=== PATIENT | male | born 1980 | race Caucasian/White ===

== ENCOUNTER 2016-12-03 16:17 | Emergency (ER) | payer OTHER ==
[~2016-12-03] VITALS: Ht 180.3 cm; Wt 84.4 kg
[2016-12-03 16:21] VITALS: TEMP 36.8; Ht 180.3 cm; Wt 84.4 kg
--- NOTE | 2016-12-03 18:01 | DIAGNOSTIC IMAGING REPORT ---
SACRUM AND COCCYX 4 VIEWS CLINICAL HISTORY: Fall with sacrococcygeal pain. FINDINGS: 4 views of the sacrum and coccyx are obtained. No prior studies are available for comparison at the time of dictation. The skeletal structures are well mineralized. There is no radiographic evidence of sacral or coccygeal fracture. The overlying soft tissues are normal as visualized. The hip joints appear maintained. The sacroiliac joints are unremarkable. IMPRESSION: There is no radiographic evidence of sacral or coccygeal fracture. Electronically signed by: Elier Echeverria M.D. 12/03/2016 5:59 PM Dictated Date/Time: 12/03/2016 5:58 PM
[2016-12-03] MEDS ORDERED: HYDR-5688 PO (18:09)
[2016-12-03] MEDS ORDERED: CLIN300C10 PO (18:09)
[2016-12-03 18:44] VITALS: BP 127/85; PULSE 78; O2SAT 99
--- NOTE | 2016-12-04 00:41 | EMERGENCY ROOM VISIT NOTE ---
ED Visit Note First contact with patient: 16:25 Chief Complaint: Broken tooth and tailbone pain. History of Present Illness: Mr. Latif is a 35-year-old white male who ambulates into the ED complaining of right maxillary dental pain and coccyx pain. Historically patient reports he had extensive dental disease approximately 4 months ago after not seeing a dentist for multiple years. He reports multiple caries were repaired. He reports since that time he has been feeling well. Additionally he reports he has a history of any previous coccyx fracture and pilonidal abscess from many years ago. Patient reports he was eating yesterday and when he finished he felt there was like something was different with his second maxillary bicuspid on the right. Then just about an hour ago he was eating pizza and had an acute onset of pain over the bicuspid. Currently he describes the pain as sharp and throbbing. He rates the discomfort 7/10. The pain is nonradiating. The pain worsens with palpation of the tooth and exposure to the air. He has not identified any alleviating factors related to the pain. He has not taken any medications for pain prior to arrival at the hospital. He denies any associated fevers, chills , sweats, facial swelling, sore throat, voice changes, other maxillary and mandibular pain. Additionally he reports 3 days ago he was drinking heavily after work and does not remember the evening. 2 days ago when he woke up he was having coccyx pain. Since that time the pain has been constant. He describes this as a stabbing throbbing pain. He rates his discomfort 8/10. His pain is nonradiating. His pain worsens with palpation and sitting on his coccyx. He has not identified any alleviating factors related to the pain. He has not taken a medication for pain prior to arrival at the hospital. He denies any associated fevers, chills, sweats, skin eruptions, skin color changes, abdominal pain, nausea, vomiting, bloody stools, bloody urine and urinary symptoms. Review of Systems: As noted above in history of present illness. 8 body systems were reviewed and found to be negative as noted above. Past Medical History: As previously noted. Current Medications: Patient denies. Allergies to Medications: Patient denies. Social History: Patient is currently employed; he feels safe in his home environment; he admits to tobacco and alcohol use. Physical Examination: Vital Signs: Date Time Temp Pulse Resp B/P Pulse Ox O2 Delivery O2 Flow Rate FiO2 12/03/16 18:44 78 18 127/85 99 12/03/16 16:21 36.8 79 18 129/74 98 Room Air GENERAL: 35 year-old white male in mild to moderate distress due to pain, nontoxic-appearing, afebrile and hemodynamically stable. . NEUROLOGICAL: Awake, alert and oriented to person, place and time. Answering questions appropriately and following commands. Normal gait. Good hand eye coordination. No focal motor or sensory deficits. SKIN: Warm, dry and pink. No soft tissue eruptions or trauma noted. HEENT: Atraumatic and normocephalic. Sclera white and conjunctiva pink. No malocclusion. Tooth #4 is vertically fractured with exposure of the canal and there is reminiscent filling; there is no active bleeding. No erythema or tenderness over the surrounding gingiva. No signs of abscess. Airway is patent. Speech normal. No submandibular or cervical lymphadenopathy. BACK: No tenderness over thoracic or lumbar bony spine. Moderate tenderness over the coccyx without bony deformity, bony crepitus, swelling or ecchymosis. No local erythema or edema consistent with abscess. ABDOMEN: Flat, soft and nontender. Positive bowel sounds in all quadrants. No guarding, rigidity or organomegaly. EXTREMITIES: Moves all extremities well on command and with purpose. All distal neurovascular statuses are intact and equal bilaterally. ED Course: Patient is assessed as noted above. Sacrum/Coccyx X-Rays: Were read by myself and shows no acute fractures or subluxations. Patient was offered pain medications and refused. Patient was educated about tonight's findings and instructed on his treatment plan; he verbalizes understanding and agreement with this plan. Clinical Impression: Maxillary tooth fracture. Coccyx pain. Disposition: Patient discharged home in stable condition accompanied by male friend; prior to departure he was reassessed and subjectively reported he was feeling better and rated his discomfort 4/10. Plan: Comfort measures were discussed with the patient including a sliding pain medication scale of ibuprofen, acetaminophen and [place], the use of dental wax to cover his tooth, prescription for clindamycin for antibiotic prophylaxis, the use of liquid/mechanical soft diet and the use of an [id number] doughnut pillow. Additionally patient was encouraged to keep his mouth clean with brushing, flossing and gargling frequently during the day. Patient was encouraged to follow-up with dentistry for definitive care and treatment and/or primary care provider for coccyx pain. Patient was encouraged return ED for uncontrolled pain, facial swelling, fevers , rectal bleeding or any new/concerning symptoms.
== END 2016-12-03 18:45 | disposition home or self-care (01) ==
LOC: C.EDB 16:19 → C.EDD 18:45
DX: S02.5XXA Fracture of tooth (traumatic), initial encounter for closed fracture (principal); X58.XXXA Exposure to other specified factors, initial encounter; M53.3 Sacrococcygeal disorders, not elsewhere classified; F17.200 Nicotine dependence, unspecified, uncomplicated